=== PATIENT | female | born 1975 | race Caucasian/White ===

== ENCOUNTER 2025-03-19 | Inpatient (IN) | payer MEDICAID, OTHER ==
[~2025-03-19] VITALS: Ht 154.9 cm; Wt 70.6 kg
[2025-03-19 01:29] LABS: Urine Protein, UAD Negative (Negative)
[2025-03-19 01:33] LABS: Hematocrit 40.3 % (36.0-46.0); Hemoglobin 14.0 g/dL (12.2-16.2); Mean Corpuscular Hemoglobin 30.9 pg (28.0-32.0); Mean Corpuscular Volume 88.7 fL (80.0-100.0); Nucleated Red Blood Cells % 0.1 %
[2025-03-19 01:38] LABS: Chloride 106 mmol/L (98-107); Potassium 3.5 mmol/L (3.5-5.1); Sodium 142 mmol/L (136-145)
[2025-03-19 01:39] LABS: Anion Gap 10 (5-15); Carbon Dioxide 26 mmol/L (20-31)
[2025-03-19 01:40] LABS: Calcium 9.6 mg/dL (8.7-10.4)
[2025-03-19 01:44] LABS: BUN/Creatinine Ratio 14.4 (10.0-20.0); Blood Urea Nitrogen 14 mg/dL (9-23); Glucose 104 mg/dL (74-106)
--- NOTE | 2025-03-19 01:45 | ED.PDOC ---
GI ASSESSMENT HPI Comments 49-year-old female with a history of UTIs, gastric bypass and prior C-sections was brought in by spouse and daughter for the chief complaint of a sharp and intermittent right lower quadrant abdominal pain with the associated nausea, and urinary urgency. Patient states her pain started approximately 4 hours before arrival to the ED, in the sense found no alleviating factors at this time but a worsening factor upon movement, walking. Patient is noted to be in severe distress at this time. Patient denies any vomiting, diarrhea, hematuria, dysuria, chest pain, or any other associated symptom, factor at this time. PHYSICAL EXAM: General: Awake, alert and oriented. Severe distress Skin: Skin in warm, dry and intact. Appropriate color for ethnicity. HEENT: The head is normocephalic and atraumatic. Conjunctivae are clear without exudates or hemorrhage. Sclera is non-icteric. EOM are intact. No signs of nystagmus. Eyelids are normal in appearance without swelling or lesions. Oral mucosa is pink and moist Neck: The neck is supple with normal range of motion. No JVD. Cardiac: Heart rate and rhythm are normal. No murmurs, gallops, or rubs are auscultated. Respiratory: No signs of respiratory distress. Lung sounds are clear in all lobes bilaterally without rales, rhonchi, or wheezes. Abdominal: Abdomen is soft, non-tender without distention, guarding or rigidity. Bowel sounds are present and normoactive in all four quadrants. Extremities: Upper and lower extremities are atraumatic in appearance without deformity or edema. Neurological: The patient is awake, alert and oriented to person, place, and time with normal speech. Speech is clear. There is no facial asymmetry. Psychiatric: Appropriate mood and affect. Good judgement and insight. REVIEW OF SYSTEMS: No fever, no chills, or fatigue HEENT: No sore throat, no earache, no congestion, no neck pain. Cardiac: No chest pain. No palpitations. Lungs: No shortness of breath, no cough. GI: nausea, no vomiting, no diarrhea, no constipation, + abdominal pain : No dysuria, + frequency, + urgency. No hematuria. Musculoskeletal: No joint pain , no joint swelling, no extremity edema. Skin: No rash, no itching. Neuro: No headache, no dizziness, no weakness Chief Complaint: Abdominal Pain Time Seen by MD: 01:41 Reviewed Notes: Nurses Notes, Medications, Allergies Allergies: Coded Allergies: NO KNOWN ALLERGIES (Unverified , 03/19/25) Information Source: Patient, Relative (Child), Spouse Mode of Arrival: Wheelchair Timing: Hours Duration: Since onset, Hours Prehospital treatment: None Quality: Aching, Cramping, Sharp Vomitus: None Stool: Normal Severity: Moderate Recent: None Recent Hx of: None Pain Location: RLQ Modifying Factors: Exertion, Food, Movement Associated sign and symptoms: Nausea, Abdominal Pain Past Medical History PAST MEDICAL HISTORY: UTI'S Surgical History: Family History Family History: Reviewed,noncontributory to illness, No family hx of Cancer, No family hx of DM, No family hx of Heart sia, No family hx of HTN, No family hx ofKidney sia, No family hx of Liver sia, No family hx of Lung sia, No family hx of Stroke Social History Smoker: Non-Smoker Alcohol: Denies ETOH Use Drugs: Denies Drug Use Lives In: Home Was a procedure done? Was a procedure done?: No GI differential Dx Differential Diagnosis: Appendicitis, Bowel Obstruction, Cholangitis, Cholecystitis, Constipation, Diverticular disease, Gastritis/PUD, Gastroenter itis, GI hemorrhage, Hernia, Ischemic Bowel, Ovarian cyst/torsion, Pancreatitis, Trauma intraabdominal, Urinary Obstruction, UTI, Urolithiasis, Dehydration, Drug toxicity, Electrolyte Imbalance, Food Poisoning, Bacterial, Parasitic, Impaction, Ischemic Bowel, Stress Ulcer, Kidney Stone X-Ray, Labs, Meds, VS Vital Signs Date Time Temp Pulse Resp B/P (MAP) Pulse Ox O2 Delivery O2 Flow Rate FiO2 03/19/25 02:38 60 16 100 Room Air* 0 21 03/19/25 02:35 60 16 132/82 03/19/25 02:30 97.4 60 16 132/82 (99) 100 97.4 03/19/25 00:01 98.1 79 16 137/81 99 98.1 Lab Test 03/19/25 01:11 03/19/25 00:15 Range/Units White Blood Count 6.4 4.4-10.8 10^3/uL Red Blood Count 4.54 4.0-5.20 10^6/uL Hemoglobin 14.0 12.2-16.2 g/dL Hematocrit 40.3 36.0-46.0 % Mean Corpuscular Volume 88.7 80.0-100.0 fL Mean Corpuscular Hemoglobin 30.9 28.0-32.0 pg Mean Corpuscular Hemoglobin Concent 34.9 32.0-36.0 g/dL Red Cell Distribution Width 12.7 11.8-14.3 % Platelet Count 193 140-450 10^3/uL Mean Platelet Volume 9.6 6.9-10.8 fL Neutrophils (%) (Auto) 53.6 37.0-80.0 % Lymphocytes (%) (Auto) 36.9 10.0-50.0 % Monocytes (%) (Auto) 5.1 0.0-12.0 % Eosinophils (%) (Auto) 1.9 0.0-7.0 % Basophils (%) (Auto) 2.5 H 0.0-2.0 % Neutrophils # (Auto) 3.4 1.6-8.6 10 ^3/uL Lymphocytes # (Auto) 2.4 0.4-5.4 10 ^3/uL Monocytes # (Auto) 0.3 0-1.3 10 ^3/uL Eosinophils # (Auto) 0.1 0-0.8 10 ^3/uL Basophils # (Auto) 0.2 0-0.2 10 ^3/uL Nucleated Red Blood Cells 0.1 % Sodium Level 142 136-145 mmol/L Potassium Level 3.5 3.5-5.1 mmol/L Chloride Level 106 98-107 mmol/L Carbon Dioxide Level 26 20-31 mmol/L Anion Gap 10 5-15 Blood Urea Nitrogen 14 9-23 mg/dL Creatinine 0.97 0.550-1.02 mg/dL Glomerular Filtration Rate Calc 71 >90 mL/min BUN/Creatinine Ratio 14.4 10.0-20.0 Serum Glucose 104 74-106 mg/dL Lactic Acid Level 0.9 0.4-2.0 mmol/L Calcium Level 9.6 8.7-10.4 mg/dL Urine Color Yellow Yellow Urine Clarity Clear Clear Urine pH 6.5 5.0-9.0 Urine Specific [place] 1.023 1.001-1.035 Urine Protein Negative Negative Urine Ketones Negative Negative Urine Blood 2+ H Negative /uL Urine Nitrite Negative Negative Urine Bilirubin Negative Negative Urine Urobilinogen Normal Negative mg/dL Urine Leukocyte Esterase Negative Negative /uL Urine RBC 179 0 - 4 /hpf Urine Microscopic WBC 2 0-5 /HPF Urine Squamous Epithelial Cells Few <5 /hpf Urine Bacteria None seen None Seen /hpf Urine Mucus Few None Seen Urine Glucose Normal Normal mg/dL Current Medications Medications (Trade) Dose Ordered Sig/Elena Route Start Time Stop Time Status Last Admin Ketorolac Tromethamine (Toradol Injection) 30 mg ONCE ONCE IV 03/19/25 03:30 03/19/25 03:31 DC 03/19/25 03:31 Metoclopramide HCl (Reglan Injection) 10 mg ONCE ONCE IV 03/19/25 03:30 03/19/25 03:31 DC 03/19/25 03:31 PATIENT: JG CAZARES ACCT: [id number] UNIT: [id number] : 1975 LOC: ER ROOM / BED: / AGE / SEX: 49 / F ADM STATUS: REG ER SERVICE 0134 ORDERING PHYSICIAN: BAR MORRISON MD PROCEDURE(s): ABPL - CT AB PEL WO CON-NO ORAL OR IV REASON: Right lower quadrant pain ORDER NUMBER(s): [id number], ACCESSION NUMBER(s): [id number] Exam: CT CT AB PEL WO CON-NO ORAL OR IV History: Right lower quadrant pain Comparison Study: None Technique: Multidetector spiral CT of the abdomen was performed from lung bases to pubic symphysis. Imaging was performed without IV contrast. Axial, coronal and sagittal multiplanar reformats were obtained from the axial data set by the technologist. Radiation Dose : 1. Abdomen/Pelvis: CTDIvol 5.85 mGy, DLP 288.72 mGy*cm. Findings: Evaluation of solid organs is limited due to lack of intravenous contrast use. Lung Bases: Unremarkable. Liver: Unremarkable. Gallbladder and Biliary Tree: Unremarkable Pancreas: Unremarkable. Spleen: Unremarkable Adrenal Glands: Unremarkable Kidneys/Ureters: 2 mm stone at the right ureterovesicular junction with mild hydroureteronephrosis. Unremarkable left kidney and ureter. Bladder: Decompressed with right UVJ stone as above. Pelvic Organs: Unremarkable Bowel: Normal caliber without wall thickening. 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 No evidence of appendicitis. Vasculature: Unremarkable. Lymphadenopathy: No obvious Peritoneum: No ascites, free air, or fluid collection. Abdominal Wall: Subcutaneous stranding in the buttocks likely represents medication injections. Musculoskeletal: No acute finding. IMPRESSION: 1. A 2 mm stone at the right UVJ is associated with mild obstructive uropathy. 2. No evidence of appendicitis. Radiation optimization: All CT scans at this facility use at least one of these dose optimization techniques: automated exposure control mA and/or kV adjustment per patient size (includes targeted exams where dose is matched to clinical indication) or iterative reconstruction. Time of 1ST Reevaluation: 02:11 Reevaluation 1ST: Unchanged Patient Education/Counseling: Diagnosis, Treatment, Need For Follow Up Family Education/Counseling: Diagnosis, Treatment, Need For Follow Up SEPSIS Sepsis Screen Date sepsis recognized/suspect: Mar 19, 2025 Time Sepsis recognized/suspect: 0007 Recent Procedure: No On Antibiotic Therapy: No Respiratory Rate >20: No Heart Rate >90: No Temp<36 C (96.8 F) or >38.3 C: No SBP <90 or MAP <65 mmHG: No New Acute Mental Status Change: No Is the patient on CPAP, BIPAP,: No Physician Orders Ct Ab Pel Wo Con-No Oral Or Iv (03/19/25 01:34) Vital Signs Date Time Temp Pulse Resp B/P (MAP) Pulse Ox O2 Delivery O2 Flow Rate FiO2 03/19/25 02:38 60 16 100 Room Air* 0 21 03/19/25 02:35 60 16 132/82 03/19/25 02:30 97.4 60 16 132/82 (99) 100 97.4 03/19/25 00:01 98.1 79 16 137/81 99 98.1 Laboratory Tests Test 03/19/25 01:11 Lactic Acid Level 0.9 mmol/L (0.4-2.0) White Blood Count 6.4 10^3/uL (4.4-10.8) Departure 1 Departure Time of Disposition: 02:50 Impression: Primary Impression: Kidney stone Additional Impressions: Kidney stone on left side Hydroureter Disposition: ADMITTED INPATIENT Condition: Stable Critical Care Note Critical Care Time?: No Stability Stability form required: No Heart Score Heart Score: Heart Score Response (Comments) Value History N/A 0 EKG N/A 0 Age N/A 0 Risk Factors N/A 0 Troponin N/A 0 Total 0 I personally scribed for BAR MORRISON MD ([email or web address]) on 03/19/25 at 01:45. Electronically submitted by Amador Stevens ([email or web address]). I personally scribed for BAR MORRISON MD ([email or web address]) on 03/19/25 at 02:45. Electronically submitted by Amador Stevens ([email or web address]). BAR MORRISON MD Mar 19, 2025 01:45
[2025-03-19] MEDS: SODIUM CHLORIDE 0.9% 1,000 ML IV ONE (02:28)
[2025-03-19] MEDS: ONDANSETRON HCL 4 MG/2 ML VIAL IV ONE (02:28)
--- NOTE | 2025-03-19 02:31 | DVH ---
Exam: CT CT AB PEL WO CON-NO ORAL OR IV History: Right lower quadrant pain Comparison Study: None Technique: Multidetector spiral CT of the abdomen was performed from lung bases to pubic symphysis. I maging was performed without IV contrast. Axial, coronal and sagittal multiplanar reformats were obta ined from the axial data set by the technologist. Radiation Dose : 1. Abdomen/Pelvis: CTDIvol 5.85 mGy, DLP 288.72 mGy*cm. Findings: Evaluation of solid organs is limited due to lack of intravenous contrast use. Lung Bases: Unremarkable. Liver: Unremarkable. Gallbladder and Biliary Tree: Unremarkable Pancreas: Unremarkable. Spleen: Unremarkable Adrenal Glands: Unremarkable Kidneys/Ureters: 2 mm stone at the right ureterovesicular junction with mild hydroureteronephrosis. U nremarkable left kidney and ureter. Bladder: Decompressed with right UVJ stone as above. Pelvic Organs: Unremarkable Bowel: Normal caliber without wall thickening. Stomach postsurgical changes consistent with sleeve ga strectomy. No evidence of appendicitis. Vasculature: Unremarkable. Lymphadenopathy: No obvious Peritoneum: No ascites, free air, or fluid collection. Abdominal Wall: Subcutaneous stranding in the buttocks likely represents medication injections. Musculoskeletal: No acute finding. IMPRESSION: 1. A 2 mm stone at the right UVJ is associated with mild obstructive uropathy. 2. No evidence of appendicitis. Radiation optimization: All CT scans at this facility use at least one of these dose optimization mekhi hniques: automated exposure control mA and/or kV adjustment per patient size (includes targeted exam s where dose is matched to clinical indication) or iterative reconstruction.
[2025-03-19] MEDS: MORPHINE SULFATE INJ 2 MG/ml SYRG IV ONE (02:35)
[2025-03-19 02:38] VITALS: PULSE 60; RESP 16; O2SAT 100
[2025-03-19] MEDS: METOCLOPRAMIDE HCL 5MG/ml INJ 2ml VIAL IV ONE (03:31)
[2025-03-19] MEDS: KETOROLAC TROMETH 30 MG/ML 1ML VIAL IV ONE (03:31)
--- NOTE | 2025-03-19 08:23 | DVHHP2 ---
History of Present Illness Reason for Visit: Abdominal pain History of Present Illness Lyndsay Luo is a 49-year-old female with no significant past medical history, who came to the hospital for abdominal pain. Patient states her abdominal pain started yesterday about 1999. The pain continued to worsen and she was experiencing associated nausea and vomiting prompting her to come to the hospital. CT of abdomen/pelvis shows a kidney stone, no hydronephrosis. Patient continues to complain of pain and nausea. Past Surgical History: (x 3), Other (gastric bypass) Smoke: No ALCOHOL: occassional Drugs: None Lives: with Family Domestic Violence: Neg Review of Systems Constitutional: No: Fever, Chills, Sweats, Weakness, Malaise, Other Eyes: No: Pain, Vision change, Conjunctivae inflammation, Eyelid inflammation, Other, Redness ENT: No: Ear pain, Ear discharge, Nose pain, Nose discharge, Nose congestion, Mouth pain, Mouth swelling, Throat pain, Throat swelling, Other Respiratory: No: Cough, Dry, Shortness of breath, SOB with excertion, Wheezing, Hemoptysis, Pleuritic Pain, Sputum, Wheezing, Other Cardiovascular: No: Chest Pain, Palpitations, Orthopnea, Paroxysmal Noc. Dyspnea, Edema, Lt Headedness, Other Gastrointestinal: Nausea, Vomiting, Abdominal Pain (RLQ); No: Diarrhea, Constipation, Melena, Hematochezia, Other Genitourinary: No Dysuria, No Frequency, No Incontinence, No Hematuria, No Retention, No Other Musculoskeletal: back pain (right flank pain); No: other, neck pain, shoulder pain, arm pain, hand pain, leg pain, foot pain Skin: No: Rash, Lesions, Jaundice, Bruising, Other Neurological: No: Weakness, Numbness, Incoordination, Change in speech, Confusion, Seizures, Other Allergies: Coded Allergies: NO KNOWN ALLERGIES (Unverified , 03/19/25) Exam Vital Signs Vital Signs Date Time Temp Pulse Resp B/P (MAP) Pulse Ox O2 Delivery O2 Flow Rate FiO2 03/19/25 02:38 60 16 100 Room Air* 0 21 03/19/25 02:35 132/82 03/19/25 02:30 97.4 97.4 General Appearance: Alert, Oriented X3, Cooperative, mild distress HEENT: Atraumatic, PERRLA Respiratory: Clear to auscultation, Normal air movement Cardiovascular: Regular rate, Normal S1, Normal S2 Abdominal: Normal bowel sounds, Soft, No hepatospenomegaly, Other (RLQ pain that radiates to right flank and pelvic area) Extremities: No clubbing, No cyanosis, No edema, Normal pulses Skin: No rashes, No breakdown, No significant lesion Neuro: Normal gait, Normal speech, Strength at 5/5 X4 ext, Normal tone Psych/Mental Status: Mental status NL, Mood NL Labs/Xrays Labs Test 03/19/25 01:11 03/19/25 00:15 Range/Units White Blood Count 6.4 4.4-10.8 10^3/uL Red Blood Count 4.54 4.0-5.20 10^6/uL Hemoglobin 14.0 12.2-16.2 g/dL Hematocrit 40.3 36.0-46.0 % Mean Corpuscular Volume 88.7 80.0-100.0 fL Mean Corpuscular Hemoglobin 30.9 28.0-32.0 pg Mean Corpuscular Hemoglobin Concent 34.9 32.0-36.0 g/dL Red Cell Distribution Width 12.7 11.8-14.3 % Platelet Count 193 140-450 10^3/uL Mean Platelet Volume 9.6 6.9-10.8 fL Neutrophils (%) (Auto) 53.6 37.0-80.0 % Lymphocytes (%) (Auto) 36.9 10.0-50.0 % Monocytes (%) (Auto) 5.1 0.0-12.0 % Eosinophils (%) (Auto) 1.9 0.0-7.0 % Basophils (%) (Auto) 2.5 H 0.0-2.0 % Neutrophils # (Auto) 3.4 1.6-8.6 10 ^3/uL Lymphocytes # (Auto) 2.4 0.4-5.4 10 ^3/uL Monocytes # (Auto) 0.3 0-1.3 10 ^3/uL Eosinophils # (Auto) 0.1 0-0.8 10 ^3/uL Basophils # (Auto) 0.2 0-0.2 10 ^3/uL Nucleated Red Blood Cells 0.1 % Sodium Level 142 136-145 mmol/L Potassium Level 3.5 3.5-5.1 mmol/L Chloride Level 106 98-107 mmol/L Carbon Dioxide Level 26 20-31 mmol/L Anion Gap 10 5-15 Blood Urea Nitrogen 14 9-23 mg/dL Creatinine 0.97 0.550-1.02 mg/dL Glomerular Filtration Rate Calc 71 >90 mL/min BUN/Creatinine Ratio 14.4 10.0-20.0 Serum Glucose 104 74-106 mg/dL Lactic Acid Level 0.9 0.4-2.0 mmol/L Calcium Level 9.6 8.7-10.4 mg/dL Urine Color Yellow Yellow Urine Clarity Clear Clear Urine pH 6.5 5.0-9.0 Urine Specific [place] 1.023 1.001-1.035 Urine Protein Negative Negative Urine Ketones Negative Negative Urine Blood 2+ H Negative /uL Urine Nitrite Negative Negative Urine Bilirubin Negative Negative Urine Urobilinogen Normal Negative mg/dL Urine Leukocyte Esterase Negative Negative /uL Urine RBC 179 0 - 4 /hpf Urine Microscopic WBC 2 0-5 /HPF Urine Squamous Epithelial Cells Few <5 /hpf Urine Bacteria None seen None Seen /hpf Urine Mucus Few None Seen Urine Glucose Normal Normal mg/dL Exam: CT CT AB PEL WO CON-NO ORAL OR IV Findings: Evaluation of solid organs is limited due to lack of intravenous contrast use. Lung Bases: Unremarkable. Liver: Unremarkable. Gallbladder and Biliary Tree: Unremarkable Pancreas: Unremarkable. Spleen: Unremarkable Adrenal Glands: Unremarkable Kidneys/Ureters: 2 mm stone at the right ureterovesicular junction with mild hydroureteronephrosis. Unremarkable left kidney and ureter. Bladder: Decompressed with right UVJ stone as above. Pelvic Organs: Unremarkable Bowel: Normal caliber without wall thickening. 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 No evidence of appendicitis. Vasculature: Unremarkable. Lymphadenopathy: No obvious Peritoneum: No ascites, free air, or fluid collection. Abdominal Wall: Subcutaneous stranding in the buttocks likely represents medication injections. Musculoskeletal: No acute finding. IMPRESSION: 1. A 2 mm stone at the right UVJ is associated with mild obstructive uropathy. 2. No evidence of appendicitis. SEPSIS Sepsis Screen Date sepsis recognized/suspect: Mar 19, 2025 Time Sepsis recognized/suspect: 0007 Recent Procedure: No On Antibiotic Therapy: No Respiratory Rate >20: No Heart Rate >90: No Temp<36 C (96.8 F) or >38.3 C: No SBP <90 or MAP <65 mmHG: No New Acute Mental Status Change: No Is the patient on CPAP, BIPAP,: No Physician Orders Ct Ab Pel Wo Con-No Oral Or Iv (03/19/25 01:34) Admit (03/19/25 08:17) Code Status (03/19/25 08:17) Hydrocodone-Acet 5/325mg Tab ([place] 32 (03/19/25 08:30) Ondansetron Hcl (Zofran) (03/19/25 08:30) Docusate Sodium Capsule (Colace Capsule) (03/19/25 08:30) Complete Blood Count (03/20/25 04:00) Comprehensive Metabolic Panel (03/20/25 04:00) Condition: Serious (03/19/25 08:17) Acetaminophen Tablet (Tylenol Tablet) (03/19/25 08:30) Regular Diet (03/19/25 Breakfast) NS (03/19/25 08:30) NS (03/19/25 08:30) Ketorolac Injection (Toradol Injection) (03/19/25 08:30) Metoclopramide Injection (Reglan Injecti (03/19/25 08:30) Tamsulosin Hydrochloride (Flomax) (03/19/25 08:30) Tamsulosin Hydrochloride (Flomax) (03/20/25 18:00) Vital Signs Date Time Temp Pulse Resp B/P (MAP) Pulse Ox O2 Delivery O2 Flow Rate FiO2 03/19/25 02:38 60 16 100 Room Air* 0 21 03/19/25 02:35 60 16 132/82 03/19/25 02:30 97.4 60 16 132/82 (99) 100 97.4 Laboratory Tests Test 03/19/25 01:11 Lactic Acid Level 0.9 mmol/L (0.4-2.0) White Blood Count 6.4 10^3/uL (4.4-10.8) Medications Medications Dose Ordered Sig/Elena Route Start Time Stop Time Status Last Admin Dose Admin Ketorolac Tromethamine 30 mg ONCE ONCE IV 03/19/25 03:30 03/19/25 03:31 DC 03/19/25 03:31 30 MG Metoclopramide HCl 10 mg ONCE ONCE IV 03/19/25 03:30 03/19/25 03:31 DC 03/19/25 03:31 10 MG Morphine Sulfate 4 mg ONCE ONCE IV 03/19/25 01:45 03/19/25 01:46 DC 03/19/25 02:35 4 MG Ondansetron HCl 4 mg ONCE ONCE IV 03/19/25 01:45 03/19/25 01:46 DC 03/19/25 02:28 4 MG Sodium Chloride 1,000 ml @ 1,000 mls/hr Q1H ONCE IV 03/19/25 01:45 03/19/25 02:44 DC 03/19/25 02:28 1,000 MLS/HR Assessment/Plan Assessment/Plan Assessment: Kidney stone, Intractable abdominal pain, Intractable nausea, Plan: Admit to Med-Surg, IV hydration, Pain management, Antiemetics, Strain all urine, Flomax, Manage/Monitor electrolytes closely, Plan discussed with: Patient My Orders Orders - IHSAN WING Procedure Category Date Status Time Admit ADMIT 03/19/25 Verified 08:17 Code Status CODE 03/19/25 Verified 08:17 Hydrocodone-Acet PHA 03/19/25 Verified 5/325mg Tab ([place] 08:30 Ondansetron Hcl PHA 03/19/25 Verified (Zofran) 08:30 Docusate Sodium PHA 03/19/25 Verified Capsule (Colace 08:30 Complete Blood Count LAB 03/20/25 Verified 04:00 Comprehensive LAB 03/20/25 Verified Metabolic Panel 04:00 Condition: Serious MANDY 03/19/25 Verified 08:17 Acetaminophen Tablet PHA 03/19/25 Verified (Tylenol Tablet) 08:30 Regular Diet DIET 03/19/25 Verified Breakfast NS PHA 03/19/25 Verified 08:30 NS PHA 03/19/25 Verified 08:30 Ketorolac Injection PHA 03/19/25 Verified (Toradol Injection) 08:30 Metoclopramide PHA 03/19/25 Verified Injection (Reglan 08:30 Tamsulosin PHA 03/19/25 Verified Hydrochloride (Flomax) 08:30 Tamsulosin PHA 03/20/25 Verified Hydrochloride (Flomax) 18:00 Date of Service: Mar 19, 2025 Billing Provider: IHSAN WING Common Visit Codes: [id number] INP/OBS CARE (MOD) IHSAN WING Mar 19, 2025 08:23
[2025-03-19] MEDS ORDERED: METOCLOPRAMIDE HCL 5MG/ml INJ 2ml VIAL IV PRN (08:30)
[2025-03-19] MEDS ORDERED: KETOROLAC TROMETH 30 MG/ML 1ML VIAL IV PRN (08:30)
[2025-03-19] MEDS ORDERED: ONDANSETRON HCL 4 MG/2 ML VIAL IV PRN (08:30)
[2025-03-19] MEDS ORDERED: HYDROcodone-ACET 5/325MG TAB PO PRN (08:30)
[2025-03-19] MEDS ORDERED: DOCUSATE SOD 100 MG CAP PO PRN (08:30)
[2025-03-19] MEDS: SODIUM CHLORIDE 0.9% 1,000 ML IV SCH (15:52)
[2025-03-19] MEDS: SODIUM CHLORIDE 0.9% 500 ML IV ONE (15:59)
[2025-03-19] MEDS: TAMSULOSIN HYDROCHLORIDE 0.4 MG CAP PO ONE (16:00)
--- NOTE | 2025-03-19 16:40 | DVHPN2 ---
Subjective Patient is admitted this morning for renal colic pain. Currently she is stable. Changes from previous H/P or p: No Changes Eyes: No Pain, No Vision change, No Conjunctivae inflammation, No Eyelid inflammation, No Other, No Redness ENT: No Ear pain, No Ear discharge, No Nose pain, No Nose discharge, No Nose congestion, No Mouth pain, No Mouth swelling, No Throat pain, No Throat swelling, No Other Cardiovascular: No Chest Pain, No Palpitations, No Orthopnea, No Paroxysmal Noc. Dyspnea, No Edema, No Lt Headedness, No Other Respiratory: No Cough, No Dry, No Shortness of breath, No SOB with excertion, No Wheezing, No Hemoptysis, No Pleuritic Pain, No Sputum, No Other Gastrointestinal: Nausea, Vomiting, Abdominal Pain (RLQ); No Diarrhea, No Constipation, No Melena, No Hematochezia, No Other Genitourinary: No Dysuria, No Frequency, No Incontinence, No Hematuria, No Retention, No Other Musculoskeletal: No other, No neck pain, No shoulder pain, No arm pain; back pain (right flank pain); No hand pain, No leg pain, No foot pain Skin: No Rash, No Lesions, No Jaundice, No Bruising, No Other Objective Vitals Vital Signs Date Time Temp Pulse Resp B/P (MAP) Pulse Ox O2 Delivery O2 Flow Rate FiO2 03/19/25 15:51 97.5 52 16 149/79 (102) 98 97.5 03/19/25 02:38 Room Air* 0 21 Intake/Output Intake and Output 03/19/25 07:00 Intake Total 1000 ml Balance 1000 ml Intake IV Total 1000 ml General Appearance: Alert, Oriented X3 HEENT: PERRLA, EOMI Lungs: Clear to auscultation, Normal air movement Cardiovascular: Regular rate, Normal S1, Normal S2, No murmurs Abdomen: Normal bowel sounds, Soft, No tenderness Extremities: No clubbing, No cyanosis, No edema Medications Current Medications Medications Dose Ordered Sig/Elena Route Start Time Stop Time Status Last Admin Dose Admin Acetaminophen/ Hydrocodone Bitart 1 tab Q4HP PRN PO 03/19/25 08:30 Ondansetron HCl 4 mg Q4HP PRN IV 03/19/25 08:30 Docusate Sodium 100 mg BIDPRN PRN PO 03/19/25 08:30 Acetaminophen 650 mg Q6HP PRN PO 03/19/25 08:30 Sodium Chloride 1,000 ml @ 125 mls/hr Q8H IV 03/19/25 08:30 Ketorolac Tromethamine 30 mg Q6HPRN PRN IV 03/19/25 08:30 03/24/25 08:29 Metoclopramide HCl 10 mg Q6HPRN PRN IV 03/19/25 08:30 Tamsulosin HCl 0.4 mg QPM PO 03/20/25 18:00 Laboratory Results Laboratory Tests 03/19/25 01:11 Chemistry Test 03/19/25 01:11 Calcium Level 9.6 mg/dL (8.7-10.4) Urinalysis Test 03/19/25 00:15 Urine Color Yellow (Yellow) Urine Clarity Clear (Clear) Urine pH 6.5 (5.0-9.0) Urine Specific [place] 1.023 (1.001-1.035) Urine Protein Negative (Negative) Urine Ketones Negative (Negative) Urine Blood 2+ /uL (Negative) H Urine Nitrite Negative (Negative) Urine Bilirubin Negative (Negative) Urine Urobilinogen Normal mg/dL (Negative) Urine Leukocyte Esterase Negative /uL (Negative) Urine RBC 179 /hpf (0 - 4) Urine Microscopic WBC 2 /HPF (0-5) Urine Squamous Epithelial Cells Few /hpf (<5) Urine Bacteria None seen /hpf (None Seen) Urine Mucus Few (None Seen) Urine Glucose Normal mg/dL (Normal) Assessment/Plan Assessment/Plan Renal colic pain with the right 2 mm UVJ/ureteral stone. I will give mannitol for as forced diuresis. We will have a Urology consultation med I will do a follow up ultrasound and KUB in the morning. We will strain all urine. Continue current pain meds and IV fluids. Otherwise further clinical management per clinical course. Plan discussed with: Other Problem List: (1) Kidney stone on left side (2) Hydroureter Date of Service: Mar 19, 2025 Billing Provider: ROJAS JOHNSON MD Common Visit Codes: [id number] INP/OBS CARE(MOD) ROJAS JOHNSON MD Mar 19, 2025 16:39
--- NOTE | 2025-03-19 17:43 | DVH ---
EXAM: US KIDNEY INDICATION: follow up eval for right ureteral stone TECHNIQUE: Multiple real-time sonographic images of the kidneys and bladder were obtained. COMPARISON: None Findings: Right kidney measures 10.7 cm with normal contours, echotexture, and cortical thickness. Mild hydrone phrosis. Echogenic structure in the lower pole of the right kidney. No evidence of cystic or solid le sions. Free fluid inferior to the right kidney. Left kidney measures 10.6 cm with normal contours, echotexture, and cortical thickness. No evidence o f hydronephrosis, calculi, cystic or solid lesions. Urinary bladder is unremarkable without evidence of abnormal wall thickening, mass, or calculi. Prevo id volume 148 mL. Postvoid volume was not obtained. Impression: 1. Unremarkable sonographic study of the left kidney and urinary bladder. 2. Possible nonobstructive right nephrolithiasis with mild hydronephrosis. 3. Free fluid inferior to the right kidney, nonspecific.
[2025-03-19 17:45] VITALS: BP 143/66; PULSE 57; RESP 18; TEMP 97.5; O2SAT 100
[2025-03-19] MEDS: MANNITOL 20% SOLN 100 gm/500ml 200 ML IV ONE (20:01)
[2025-03-19 21:00] VITALS: BP 108/69; PULSE 60; RESP 16; TEMP 97.7; O2SAT 100
[2025-03-20] VITALS (8 sets, daily range): BP systolic 102–136; BP diastolic 50–81; PULSE 53–75; RESP 16–18; TEMP 97.4–97.9; O2SAT 95–100
[2025-03-20 06:05] LABS: Hematocrit 33.8 % (36.0-46.0); Hemoglobin 11.6 g/dL (12.2-16.2); Mean Corpuscular Hemoglobin 31.1 pg (28.0-32.0); Mean Corpuscular Volume 90.6 fL (80.0-100.0); Nucleated Red Blood Cells % 0.0 %
[2025-03-20 06:31] LABS: Alanine Aminotransferase 25 U/L (7-40); Albumin 3.7 g/dL (3.2-4.8); Alkaline Phosphatase 88 U/L (46-116); Anion Gap 7 (5-15); BUN/Creatinine Ratio 15.7 (10.0-20.0); Blood Urea Nitrogen 16 mg/dL (9-23); Calcium 8.9 mg/dL (8.7-10.4); Carbon Dioxide 25 mmol/L (20-31); Glucose 87 mg/dL (74-106); Potassium 3.9 mmol/L (3.5-5.1); Sodium 142 mmol/L (136-145)
[2025-03-20 06:35] LABS: Bilirubin, Total 2.2 mg/dL (0.2-1.0); Chloride 110 mmol/L (98-107); Total Protein 5.6 g/dL (5.7-8.2)
--- NOTE | 2025-03-20 07:42 | DVH ---
Exam: XY KUB ABDOMEN SINGLE VIEW Indication: Follow up for a right UVJ ureteral stone Comparison: US KIDNEY on DOS: 03/19/25, CT CT AB PEL WO CON-NO ORAL OR IV on DOS: 03/19/25 Technique: 1 radiographic views of the abdomen. Findings: Nonobstructive bowel gas pattern noted. Moderate volume colonic stool. There is no definite evidence for pneumoperitoneum. No abnormal calcifications noted. Impression: Moderate volume colonic stool. No appreciable radiopaque renal stone.
--- NOTE | 2025-03-20 14:32 | DVHINCON2 ---
Date of service: Mar 20, 2025 Referring Physician Hospitalist Reason for Consultation 2 mm right UVJ ureteral stone History of Present Illness History Source: Patient, RN Notes, Notes Exam Limitations: No limitations HPI 49-year-old female with no significant past medical history, who came to the hospital for abdominal pain. Patient states her abdominal pain started yesterday about 1999. The pain continued to worsen and she was experiencing associated nausea and vomiting prompting her to come to the hospital. CT of abdomen/pelvis shows a right distal stone, no hydronephrosis. Patient continues to complain of pain and nausea. Home Meds Active Scripts Tamsulosin Hcl (Flomax) 0.4 Mg Cap, 1 CAP PO DAILY, #7 CAP Prov:ROJAS JOHNSON MD 03/20/25 Ibuprofen (Ibuprofen) 600 Mg Tab, 1 TAB PO TID PRN, #30 TAB Prov:ROJAS JOHNSON MD 03/20/25 Past Medical History Patient Family History: Hypertension G8 MOTHER Review of Systems Gastrointestinal: Nausea, Abdominal Pain Genitourinary: Pain H&P Exam Vital Signs Vital Signs Date Time Temp Pulse Resp B/P (MAP) Pulse Ox O2 Delivery O2 Flow Rate FiO2 03/20/25 08:54 97.8 54 18 107/59 (75) 98 97.8 03/20/25 08:00 Room Air* 0 21 General Appeara: Well developed, Well nourished, Normal Appearance Neuro/Mental St: Alert, Oriented Appearance: Appropriate appearance, Appropriate insight Eye contact/ Speech: Cooperative, Good eye contact, Normal speech Skin Exam: Normal inspection, Normal color, Warm/dry Labs/Xrays [place] [address] Ph: [phone] DIAGNOSTIC IMAGING Diagnostic Imaging Report : [id number] Signed PATIENT: JG CAZARESACCT: [id number] UNIT: [id number] : 1975 LOC: EAST ROOM / BED: 0244ADS / 3 AGE / SEX: 49 / F ADM STATUS: ADM IN SERVICE 0600 ORDERING PHYSICIAN: ROJAS JOHNSON MD PROCEDURE(s): KUB - KUB ABDOMEN SINGLE VIEW REASON: Follow up for a right UVJ ureteral stone ORDER NUMBER(s): [id number], ACCESSION NUMBER(s): [id number] Exam: XY KUB ABDOMEN SINGLE VIEW Indication: Follow up for a right UVJ ureteral stone Comparison: US KIDNEY on DOS: 03/19/25, CT CT AB PEL WO CON-NO ORAL OR IV on DOS: 03/19/25 Technique: 1 radiographic views of the abdomen. Findings: Nonobstructive bowel gas pattern noted. Moderate volume colonic stool. There is no definite evidence for pneumoperitoneum. No abnormal calcifications noted. Impression: Moderate volume colonic stool. No appreciable radiopaque renal stone. ATED BY: HAIR MULLIGAN MD DICTATED DATE/TIME: 03/20/25738 SIGNED BY: HAIR MULLIGAN MD SIGNED DATE/TIME: 03/20/25738 [place] [address] Ph: [phone] DIAGNOSTIC IMAGING Diagnostic Imaging Report : [id number] Signed PATIENT: JG CAZARESACCT: [id number] UNIT: [id number] : 1975 LOC: OVERFLOW ROOM / BED: [facility] / A AGE / SEX: 49 / F ADM STATUS: ADM IN SERVICE 34 ORDERING PHYSICIAN: ROJAS JOHNSON MD PROCEDURE(s): KIDUS - KIDNEY REASON: follow up eval for right ureteral stone ORDER NUMBER(s): [id number], ACCESSION NUMBER(s): [id number] EXAM: US KIDNEY INDICATION: follow up eval for right ureteral stone TECHNIQUE: Multiple real-time sonographic images of the kidneys and bladder were obtained. COMPARISON: None Findings: Right kidney measures 10.7 cm with normal contours, echotexture, and cortical thickness. Mild hydronephrosis. Echogenic structure in the lower pole of the right kidney. No evidence of cystic or solid lesions. Free fluid inferior to the right kidney. Left kidney measures 10.6 cm with normal contours, echotexture, and cortical thickness. No evidence of hydronephrosis, calculi, cystic or solid lesions. Urinary bladder is unremarkable without evidence of abnormal wall thickening, mass, or calculi. Prevoid volume 148 mL. Postvoid volume was not obtained. Impression: 1. Unremarkable sonographic study of the left kidney and urinary bladder. 2. Possible nonobstructive right nephrolithiasis with mild hydronephrosis. 3. Free fluid inferior to the right kidney, nonspecific. ATED BY: PAOLA GARCIA DO DICTATED DATE/TIME: 03/19/251740 SIGNED BY: PAOLA GARCIA DO SIGNED DATE/TIME: 03/19/251740 CC: [place] [address] Ph: [phone] DIAGNOSTIC IMAGING Diagnostic Imaging Report : [id number] Signed PATIENT: JG CAZARESACCT: [id number] UNIT: [id number] : 1975 LOC: ER ROOM / BED: / AGE / SEX: 49 / F ADM STATUS: REG ER SERVICE 013 ORDERING PHYSICIAN: BAR MORRISON MD PROCEDURE(s): ABPL - CT AB PEL WO CON-NO ORAL OR IV REASON: Right lower quadrant pain ORDER NUMBER(s): [id number], ACCESSION NUMBER(s): [id number] Exam: CT CT AB PEL WO CON-NO ORAL OR IV History: Right lower quadrant pain Comparison Study: None Technique: Multidetector spiral CT of the abdomen was performed from lung bases to pubic symphysis. Imaging was performed without IV contrast. Axial, coronal and sagittal multiplanar reformats were obtained from the axial data set by the technologist. Radiation Dose : 1. Abdomen/Pelvis: CTDIvol 5.85 mGy, DLP 288.72 mGy*cm. Findings: Evaluation of solid organs is limited due to lack of intravenous contrast use. Lung Bases: Unremarkable. Liver: Unremarkable. Gallbladder and Biliary Tree: Unremarkable Pancreas: Unremarkable. Spleen: Unremarkable Adrenal Glands: Unremarkable Kidneys/Ureters: 2 mm stone at the right ureterovesicular junction with mild hydroureteronephrosis. Unremarkable left kidney and ureter. Bladder: Decompressed with right UVJ stone as above. Pelvic Organs: Unremarkable Bowel: Normal caliber without wall thickening. 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 No evidence of appendicitis. Vasculature: Unremarkable. Lymphadenopathy: No obvious Peritoneum: No ascites, free air, or fluid collection. Abdominal Wall: Subcutaneous stranding in the buttocks likely represents medication injections. Musculoskeletal: No acute finding. IMPRESSION: 1. A 2 mm stone at the right UVJ is associated with mild obstructive uropathy. 2. No evidence of appendicitis. Radiation optimization: All CT scans at this facility use at least one of these dose optimization techniques: automated exposure control mA and/or kV adjustment per patient size (includes targeted exams where dose is matched to clinical indication) or iterative reconstruction. ATED BY: HAIR MULLIGAN MD DICTATED DATE/TIME: 03/19/25228 SIGNED BY: HAIR MULLIGAN MD SIGNED DATE/TIME: 03/19/25228 CC: Labs Test 03/20/25 05:34 03/19/25 17:19 03/19/25 01:11 03/19/25 00:15 Range/Units White Blood Count 5.5 4.4-10.8 10^3/uL Red Blood Count 3.73 L 4.0-5.20 10^6/uL Hemoglobin 11.6 #L 12.2-16.2 g/dL Hematocrit 33.8 #L 36.0-46.0 % Mean Corpuscular Volume 90.6 80.0-100.0 fL Mean Corpuscular Hemoglobin 31.1 28.0-32.0 pg Mean Corpuscular Hemoglobin Concent 34.3 32.0-36.0 g/dL Red Cell Distribution Width 12.7 11.8-14.3 % Platelet Count 131 L 140-450 10^3/uL Mean Platelet Volume 10.0 6.9-10.8 fL Neutrophils (%) (Auto) 54.0 37.0-80.0 % Lymphocytes (%) (Auto) 35.3 10.0-50.0 % Monocytes (%) (Auto) 6.5 0.0-12.0 % Eosinophils (%) (Auto) 3.0 0.0-7.0 % Basophils (%) (Auto) 1.2 0.0-2.0 % Neutrophils # (Auto) 3.0 1.6-8.6 10 ^3/uL Lymphocytes # (Auto) 1.9 0.4-5.4 10 ^3/uL Monocytes # (Auto) 0.4 0-1.3 10 ^3/uL Eosinophils # (Auto) 0.2 0-0.8 10 ^3/uL Basophils # (Auto) 0.1 0-0.2 10 ^3/uL Nucleated Red Blood Cells 0.0 % Sodium Level 142 136-145 mmol/L Potassium Level 3.9 3.5-5.1 mmol/L Chloride Level 110 H 98-107 mmol/L Carbon Dioxide Level 25 20-31 mmol/L Anion Gap 7 5-15 Blood Urea Nitrogen 16 9-23 mg/dL Creatinine 1.02 0.550-1.02 mg/dL Glomerular Filtration Rate Calc 67 >90 mL/min BUN/Creatinine Ratio 15.7 10.0-20.0 Serum Glucose 87 74-106 mg/dL Calcium Level 8.9 8.7-10.4 mg/dL Total Bilirubin 2.2 H 0.2-1.0 mg/dL Aspartate Amino Transferase (AST) 26 13-40 U/L Alanine Aminotransferase (ALT) 25 7-40 U/L Alkaline Phosphatase 88 46-116 U/L Total Protein 5.6 L 5.7-8.2 g/dL Albumin 3.7 3.2-4.8 g/dL POC Glucose 78 70-106 mg/dl Lactic Acid Level 0.9 0.4-2.0 mmol/L Urine Color Yellow Yellow Urine Clarity Clear Clear Urine pH 6.5 5.0-9.0 Urine Specific [place] 1.023 1.001-1.035 Urine Protein Negative Negative Urine Ketones Negative Negative Urine Blood 2+ H Negative /uL Urine Nitrite Negative Negative Urine Bilirubin Negative Negative Urine Urobilinogen Normal Negative mg/dL Urine Leukocyte Esterase Negative Negative /uL Urine RBC 179 0 - 4 /hpf Urine Microscopic WBC 2 0-5 /HPF Urine Squamous Epithelial Cells Few <5 /hpf Urine Bacteria None seen None Seen /hpf Urine Mucus Few None Seen Urine Glucose Normal Normal mg/dL PATIENT: JG CAZARESACCT: [id number] UNIT: [id number] : 1975 LOC: ER ROOM / BED: / AGE / SEX: 49 / F ADM STATUS: REG ER SERVICE 0134 ORDERING PHYSICIAN: BAR MORRISON MD PROCEDURE(s): ABPL - CT AB PEL WO CON-NO ORAL OR IV REASON: Right lower quadrant pain ORDER NUMBER(s): [id number], ACCESSION NUMBER(s): [id number] Exam: CT CT AB PEL WO CON-NO ORAL OR IV History: Right lower quadrant pain Comparison Study: None Technique: Multidetector spiral CT of the abdomen was performed from lung bases to pubic symphysis. Imaging was performed without IV contrast. Axial, coronal and sagittal multiplanar reformats were obtained from the axial data set by the technologist. Radiation Dose : 1. Abdomen/Pelvis: CTDIvol 5.85 mGy, DLP 288.72 mGy*cm. Findings: Evaluation of solid organs is limited due to lack of intravenous contrast use. Lung Bases: Unremarkable. Liver: Unremarkable. Gallbladder and Biliary Tree: Unremarkable Pancreas: Unremarkable. Spleen: Unremarkable Adrenal Glands: Unremarkable Kidneys/Ureters: 2 mm stone at the right ureterovesicular junction with mild hydroureteronephrosis. Unremarkable left kidney and ureter. Bladder: Decompressed with right UVJ stone as above. Pelvic Organs: Unremarkable Bowel: Normal caliber without wall thickening. 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 No evidence of appendicitis. Vasculature: Unremarkable. Lymphadenopathy: No obvious Peritoneum: No ascites, free air, or fluid collection. Abdominal Wall: Subcutaneous stranding in the buttocks likely represents medication injections. Musculoskeletal: No acute finding. IMPRESSION: 1. A 2 mm stone at the right UVJ is associated with mild obstructive uropathy. 2. No evidence of appendicitis. Radiation optimization: All CT scans at this facility use at least one of these dose optimization techniques: automated exposure control mA and/or kV adjustment per patient size (includes targeted exams where dose is matched to clinical indication) or iterative reconstruction. ENT: JG CAZARESACCT: [id number] UNIT: [id number] : 1975 LOC: ER ROOM / BED: / AGE / SEX: 49 / F ADM STATUS: REG ER SERVICE 0134 ORDERING PHYSICIAN: BAR MORRISON MD PROCEDURE(s): ABPL - CT AB PEL WO CON-NO ORAL OR IV REASON: Right lower quadrant pain ORDER NUMBER(s): [id number], ACCESSION NUMBER(s): [id number] Exam: CT CT AB PEL WO CON-NO ORAL OR IV History: Right lower quadrant pain Comparison Study: None Technique: Multidetector spiral CT of the abdomen was performed from lung bases to pubic symphysis. Imaging was performed without IV contrast. Axial, coronal and sagittal multiplanar reformats were obtained from the axial data set by the technologist. Radiation Dose : 1. Abdomen/Pelvis: CTDIvol 5.85 mGy, DLP 288.72 mGy*cm. Findings: Evaluation of solid organs is limited due to lack of intravenous contrast use. Lung Bases: Unremarkable. Liver: Unremarkable. Gallbladder and Biliary Tree: Unremarkable Pancreas: Unremarkable. Spleen: Unremarkable Adrenal Glands: Unremarkable Kidneys/Ureters: 2 mm stone at the right ureterovesicular junction with mild hydroureteronephrosis. Unremarkable left kidney and ureter. Bladder: Decompressed with right UVJ stone as above. Pelvic Organs: Unremarkable Bowel: Normal caliber without wall thickening. 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 No evidence of appendicitis. Vasculature: Unremarkable. Lymphadenopathy: No obvious Peritoneum: No ascites, free air, or fluid collection. Abdominal Wall: Subcutaneous stranding in the buttocks likely represents medication injections. Musculoskeletal: No acute finding. IMPRESSION: 1. A 2 mm stone at the right UVJ is associated with mild obstructive uropathy. 2. No evidence of appendicitis. Radiation optimization: All CT scans at this facility use at least one of these dose optimization techniques: automated exposure control mA and/or kV adjustment per patient size (includes targeted exams where dose is matched to clinical indication) or iterative reconstruction. ENT: JG CAZARESACCT: [id number] UNIT: [id number] : 1975 LOC: ER ROOM / BED: / AGE / SEX: 49 / F ADM STATUS: REG ER SERVICE 0134 ORDERING PHYSICIAN: BAR MORRISON MD PROCEDURE(s): ABPL - CT AB PEL WO CON-NO ORAL OR IV REASON: Right lower quadrant pain ORDER NUMBER(s): [id number], ACCESSION NUMBER(s): [id number] Exam: CT CT AB PEL WO CON-NO ORAL OR IV History: Right lower quadrant pain Comparison Study: None Technique: Multidetector spiral CT of the abdomen was performed from lung bases to pubic symphysis. Imaging was performed without IV contrast. Axial, coronal and sagittal multiplanar reformats were obtained from the axial data set by the technologist. Radiation Dose : 1. Abdomen/Pelvis: CTDIvol 5.85 mGy, DLP 288.72 mGy*cm. Findings: Evaluation of solid organs is limited due to lack of intravenous contrast use. Lung Bases: Unremarkable. Liver: Unremarkable. Gallbladder and Biliary Tree: Unremarkable Pancreas: Unremarkable. Spleen: Unremarkable Adrenal Glands: Unremarkable Kidneys/Ureters: 2 mm stone at the right ureterovesicular junction with mild hydroureteronephrosis. Unremarkable left kidney and ureter. Bladder: Decompressed with right UVJ stone as above. Pelvic Organs: Unremarkable Bowel: Normal caliber without wall thickening. 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 No evidence of appendicitis. Vasculature: Unremarkable. Lymphadenopathy: No obvious Peritoneum: No ascites, free air, or fluid collection. Abdominal Wall: Subcutaneous stranding in the buttocks likely represents medication injections. Musculoskeletal: No acute finding. IMPRESSION: 1. A 2 mm stone at the right UVJ is associated with mild obstructive uropathy. 2. No evidence of appendicitis. Radiation optimization: All CT scans at this facility use at least one of these dose optimization techniques: automated exposure control mA and/or kV adjust ment per patient size (includes targeted exams where dose is matched to clinical indication) or iterative reconstruction. Assessment/Plan Problem List: (1) Ureteral stone (2) Hydronephrosis (3) Hydroureter Plan Assessment: 2 mm right UVJ stone Mild right Hydronephrosis Plan: trial of passage expulsive measures pain meds prn outpt f/u cleared from urology standpoint if pain controlled Plan discussed with: Patient LEIGHGABRIELLAEVELIO Thornton GERIATRIC SOCIAL WORK PROFESSOR Mar 20, 2025 14:32 DEDE ART GERIATRIC SOCIAL WORK PROFESSOR Mar 20, 2025 16:47
[2025-03-20] MEDS: TAMSULOSIN HYDROCHLORIDE 0.4 MG CAP PO SCH (17:18)
[2025-03-20] MEDS: ACETAMINOPHEN 325 MG TAB PO PRN (17:18)
[2025-03-20] MEDS ORDERED: TAMS-35 PO (19:52)
[2025-03-20] MEDS ORDERED: IBUP-1454 PO (19:52)
--- NOTE | 2025-03-20 19:54 | DVHDS2 ---
Discharge Summary Date of Admission Mar 19, 2025 at 08:17 Date of Discharge: Mar 20, 2025 Labs/Diagnostic Data: Laboratory Results Test 03/20/25 05:34 03/19/25 17:19 03/19/25 01:11 03/19/25 00:15 White Blood Count 5.5 10^3/uL (4.4-10.8) Red Blood Count 3.73 10^6/uL (4.0-5.20) Hemoglobin 11.6 g/dL (12.2-16.2) Hematocrit 33.8 % (36.0-46.0) Mean Corpuscular Volume 90.6 fL (80.0-100.0) Mean Corpuscular Hemoglobin 31.1 pg (28.0-32.0) Mean Corpuscular Hemoglobin Concent 34.3 g/dL (32.0-36.0) Red Cell Distribution Width 12.7 % (11.8-14.3) Platelet Count 131 10^3/uL (140-450) Mean Platelet Volume 10.0 fL (6.9-10.8) Neutrophils (%) (Auto) 54.0 % (37.0-80.0) Lymphocytes (%) (Auto) 35.3 % (10.0-50.0) Monocytes (%) (Auto) 6.5 % (0.0-12.0) Eosinophils (%) (Auto) 3.0 % (0.0-7.0) Basophils (%) (Auto) 1.2 % (0.0-2.0) Neutrophils # (Auto) 3.0 10 ^3/uL (1.6-8.6) Lymphocytes # (Auto) 1.9 10 ^3/uL (0.4-5.4) Monocytes # (Auto) 0.4 10 ^3/uL (0-1.3) Eosinophils # (Auto) 0.2 10 ^3/uL (0-0.8) Basophils # (Auto) 0.1 10 ^3/uL (0-0.2) Nucleated Red Blood Cells 0.0 % Sodium Level 142 mmol/L (136-145) Potassium Level 3.9 mmol/L (3.5-5.1) Chloride Level 110 mmol/L (98-107) Carbon Dioxide Level 25 mmol/L (20-31) Anion Gap 7 (5-15) Blood Urea Nitrogen 16 mg/dL (9-23) Creatinine 1.02 mg/dL (0.550-1.02) Glomerular Filtration Rate Calc 67 mL/min (>90) BUN/Creatinine Ratio 15.7 (10.0-20.0) Serum Glucose 87 mg/dL (74-106) Calcium Level 8.9 mg/dL (8.7-10.4) Total Bilirubin 2.2 mg/dL (0.2-1.0) Aspartate Amino Transferase (AST) 26 U/L (13-40) Alanine Aminotransferase (ALT) 25 U/L (7-40) Alkaline Phosphatase 88 U/L (46-116) Total Protein 5.6 g/dL (5.7-8.2) Albumin 3.7 g/dL (3.2-4.8) POC Glucose 78 mg/dl (70-106) Lactic Acid Level 0.9 mmol/L (0.4-2.0) Urine Color Yellow (Yellow) Urine Clarity Clear (Clear) Urine pH 6.5 (5.0-9.0) Urine Specific [place] 1.023 (1.001-1.035) Urine Protein Negative (Negative) Urine Ketones Negative (Negative) Urine Blood 2+ /uL (Negative) Urine Nitrite Negative (Negative) Urine Bilirubin Negative (Negative) Urine Urobilinogen Normal mg/dL (Negative) Urine Leukocyte Esterase Negative /uL (Negative) Urine RBC 179 /hpf (0 - 4) Urine Microscopic WBC 2 /HPF (0-5) Urine Squamous Epithelial Cells Few /hpf (<5) Urine Bacteria None seen /hpf (None Seen) Urine Mucus Few (None Seen) Urine Glucose Normal mg/dL (Normal) Other Laboratory Tests 03/20/25 05:34 Brief Hx & Hospital Course: Lyndsay Luo is a 49-year-old female with no significant past medical history, who came to the hospital for abdominal pain. Patient states her abdominal pain started yesterday about 1999. The pain continued to worsen and she was experiencing associated nausea and vomiting prompting her to come to the hospital. CT of abdomen/pelvis shows a kidney stone, no hydronephrosis. Patient continues to complain of pain and nausea. She is admitted and evaluated by urologist. Patient had a small stone in her right ureter. It appears patient may have passed this. His patient did not require any pain medication today. Patient's follow up KUB extra as well as renal ultrasound did not show any acute significant pathology. Given patient's symptoms resolved and feeling better it is felt she could be safely discharged home with a close outpatient follow up with the urologist should she have any recurrent symptoms. Meantime she is advised to drink plenty of liquids at home and take the medications as prescribed. I have talked with the patient along with the nurse/tankage grinder at bedside regarding her hospital diagnosis, treatment she received, CT results, discharge medications and follow-up plan of care. She has verbalized understanding of these and agree with the care plan as outlined. Consults/Reason for consult Assessment/Plan Problem List: (1) Ureteral stone (2) Hydronephrosis (3) Hydroureter Plan Assessment: 2 mm right UVJ stone Mild right Hydronephrosis Plan: trial of passage expulsive measures pain meds prn outpt f/u cleared from urology standpoint if pain controlled Plan discussed with: Patient EVELIO GUZMAN NP Mar 20, 2025 14:32 DEDE ART NP Mar 20, 2025 16:47 DICTATED BY:EVELIO GUZMAN CROP QUANTITATIVE GENETICIST DICTATED DATE/TIME:03/20/25 1432 Operations or Procedures Exam: CT CT AB PEL WO CON-NO ORAL OR IV History: Right lower quadrant pain Comparison Study: None Technique: Multidetector spiral CT of the abdomen was performed from lung bases to pubic symphysis. Imaging was performed without IV contrast. Axial, coronal and sagittal multiplanar reformats were obtained from the axial data set by the technologist. Radiation Dose : 1. Abdomen/Pelvis: CTDIvol 5.85 mGy, DLP 288.72 mGy*cm. Findings: Evaluation of solid organs is limited due to lack of intravenous contrast use. Lung Bases: Unremarkable. Liver: Unremarkable. Gallbladder and Biliary Tree: Unremarkable Pancreas: Unremarkable. Spleen: Unremarkable Adrenal Glands: Unremarkable Kidneys/Ureters: 2 mm stone at the right ureterovesicular junction with mild hydroureteronephrosis. Unremarkable left kidney and ureter. Bladder: Decompressed with right UVJ stone as above. Pelvic Organs: Unremarkable Bowel: Normal caliber without wall thickening. 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 No evidence of appendicitis. Vasculature: Unremarkable. Lymphadenopathy: No obvious Peritoneum: No ascites, free air, or fluid collection. Abdominal Wall: Subcutaneous stranding in the buttocks likely represents medication injections. Musculoskeletal: No acute finding. IMPRESSION: 1. A 2 mm stone at the right UVJ is associated with mild obstructive uropathy. 2. No evidence of appendicitis. Radiation optimization: All CT scans at this facility use at least one of these dose optimization techniques: automated exposure control mA and/or kV adjustment per patient size (includes targeted exams where dose is matched to clinical indication) or iterative reconstruction. ATED BY: SUSAN MULLIGAN MD DICTATED DATE/TIME: 03/19/25228 Condition at Discharge: Stable Final Diagnosis/Problems List 2 mm right ureteral/UVJ stone, renal colic pain Discharge Disposition: Home Discharge Instruct/Medications Diet: Consistent carbohydrate, Cardiac 2g Na,low cholest Activity: No Restrictions, As Tolerated Follow Up/Referral: with Urologist next week if recurrent pain or discomfort Medications: as prescribed Scheduled Tamsulosin Hcl (Flomax), 1 CAP PO DAILY Scheduled PRN Ibuprofen (Ibuprofen), 1 TAB PO TID PRN Discharge Statement: "Patient was advised to return to the ER or call 911 if any headaches, dizziness, shortness of breath, chest pain, abdominal pain, bleeding, fevers, or worsening of medical condition. Patient was counseled about treatment plan, medications, possible side effects, patientverbalized understanding. All questions were answered to the best of my ability. This discharge took greater then 30 minutes in planning, reviewing documentation, counseling the patient, and discussing with other team members." ASSESSMENT ASSESSMENT Assessment Date of Service: Mar 20, 2025 Billing Provider: ROJAS JOHNSON MD Common Visit Codes: 56011-OTX/OBS DISCH DAY <30MIN ROJAS JOHNSON MD Mar 20, 2025 19:54
== END 2025-03-20 22:08 | disposition home or self-care (01) | DRG 465 ==
LOC: ER → OVERFLOW 08:17 → EAST 17:44
PROVIDERS: ADMIT Hospitalist; ATTEND Hospitalist
DX: N13.2 Hydronephrosis with renal and ureteral calculous obstruction (principal); I10 Essential (primary) hypertension; Z98.84 Bariatric surgery status; Z79.899 Other long term (current) drug therapy
CPT/HCPCS: 36415; 74018; 74176; 76775; 80048; 80053; 81001; 82962; 83605; 85025; 96365; 96375; G0378; J1885; J2405